=== PATIENT | male | born 1940 | race Two or more races ===

== ENCOUNTER 2021-02-25 22:53 | Inpatient (IN) | payer MEDICARE, OTHER ==
[~2021-02-25] VITALS: Ht 172.7 cm; Wt 118.0 kg
--- NOTE | 2021-02-25 23:02 | NUR ---
PT BIBRA 41 FOR C/O MID STERNAL CP 11/23. ASPIRIN 324MG PO AND A SPRAY OF NITRO GIVEN OIL AND GAS LEASE PUMPER. PLACED IN GOWN, ON TIMBER INSPECTOR, AND PULSE OX. AWAITING ER MD FOR EVAL.
--- NOTE | 2021-02-25 23:26 | NUR ---
JERMAINE MACDONALD [phone]
[2021-02-25 23:33] LABS: BASOPHILS % (AUTO) 0.2 % (0.0-2.0); EOSINOPHILS % (AUTO) 1.8 % (0.0-6.0); HEMATOCRIT 30 % (39-51); HEMOGLOBIN 10.3 g/dL (13.5-17.5); LYMPHOCYTES # (AUTO) 0.7 K/uL (0.8-4.8); LYMPHOCYTES % (AUTO) 11.5 % (20.0-44.0); MEAN CORPUSCULAR HGB CONC 34 g/dl (31.0-36.0); MEAN CORPUSCULAR VOLUME 110 fL (80-96); MONOCYTES # (AUTO) 0.7 K/uL (0.1-1.30); MONOCYTES % (AUTO) 10.9 % (2.0-12.0); NEUTROPHILS # (AUTO) 4.8 K/uL (1.8-8.9); NEUTROPHILS % (AUTO) 75.6 % (43.0-81.0); PLATELET COUNT (AUTO) 174 K/uL (150-450); RED BLOOD CELL COUNT(AUTO) 2.78 MIL/uL (4.5-6.0); WHITE BLOOD COUNT (AUTO) 6.4 K/uL (4.3-11.0)
[2021-02-25 23:48] LABS: CALCIUM, SERUM 8.4 mg/dL (8.5-10.1); CARBON DIOXIDE 29 mmol/L (21-32); CHLORIDE 109 mmol/L (98-107); CREATININE 1.3 mg/dL (0.6-1.3); GLUCOSE 162 mg/dL (74-106); POTASSIUM 4.5 mmol/L (3.5-5.1); SODIUM SERUM 143 mmol/L (136-145); UREA NITROGEN, BLOOD 17 mg/dL (7-18)
[2021-02-25 23:59] LABS: ALANINE AMINOTRANSFERASE 27 U/L (12-78); ALBUMIN 2.5 g/dL (3.4-5.0); ALKALINE PHOSPHATASE 81 U/L (46-116); ASPARTATE AMINOTRANSFERASE 25 U/L (15-37); BILIRUBIN,DIRECT 0.2 mg/dL (0.0-0.2); BILIRUBIN,TOTAL 0.4 mg/dL (0.2-1.0); TOTAL PROTEIN, SERUM 6.3 g/dL (6.4-8.2)
[2021-02-26] MEDS ORDERED: HYDROCODONE/APAP 5/325MG TABLET ONE (00:36)
--- NOTE | 2021-02-26 00:38 | NUR ---
PT REQUESTING PAIN MEDICATION, VERBAL ORDER RECIEVED FOR NORCO 5MG PO.
[2021-02-26] MEDS ORDERED: HYDROCODONE/APAP 5/325MG TABLET PO ONE (01:00)
--- NOTE | 2021-02-26 01:11 | NUR ---
EPIC PAGED FOR PANEL
[2021-02-26] MEDS ORDERED: MORPHINE SULFATE INJ 4 MG/ML DISP.SYRIN IV ONE (01:30)
[2021-02-26] MEDS ORDERED: MAG HYDROX/AL HYDROX/SIMETH 30 ML UDC PO PRN (01:30)
[2021-02-26] MEDS ORDERED: BISA10SU11 RC (01:39)
[2021-02-26] MEDS ORDERED: NA P133E RC (01:39)
[2021-02-26] MEDS ORDERED: ASCO500T21 PO (01:39)
[2021-02-26] MEDS ORDERED: METO50TA16 PO (01:39)
[2021-02-26] MEDS ORDERED: CLON0.5T4 PO (01:39)
[2021-02-26] MEDS ORDERED: DOCU100C36 PO (01:39)
[2021-02-26] MEDS ORDERED: ENOX40DI SQ (01:39)
--- NOTE | 2021-02-26 01:43 | NUR ---
REPORT GIVEN TO MAKAYLA RODAS FOR GARRETT
[2021-02-26 01:55] VITALS: BP 115/67
--- NOTE | 2021-02-26 01:55 | NUR ---
ADMIT NOTE RECEIVED PATIENT FROM ER, TRANSFERRED TO ROOM 105 VIA STRETCHER. PATIENT IS ALERT AND ORIENTED X4. ABLE TO MAKE NEEDS KNOWN. ON O2 4L VIA NASAL CANNULA, O2 SAT 96%. NO S/S OF ANY ACUTE RESPIRATORY DISTRESS. COMPLAINED OF 7/10 BILATERAL LOWER LEGS. DENIES ANY CHEST PAIN AT THIS TIME. KEPT COMFORTABLE. IV ACCESS ON LEFT AC #20, PATENT AND INTACT. SKIN ASSESSMENT DONE, NOTED WITH BILATERAL GROIN REDNESS, BILATERAL LOWER LEG CELLULITIS, AND SACRUM REDNESS. ASSISTED PATIENT WITH URINAL AND VOIDED 80CC YELLOW LUDIVINA URINE. ORIENTED PATIENT TO STAFF, ROOM, AND CALL LIGHT. BED LOCKED AND IN LOWEST POSITION. SAFETY MEASURES MAINTAINED. ALL NEEDS ANTICIPATED.
--- NOTE | 2021-02-26 02:00 | NUR ---
PT TRANSFERED PER ACLS PROTOCOL
[2021-02-26 04:00] VITALS: BP 121/76
[2021-02-26 06:33] LABS: BASOPHILS % (AUTO) 0.5 % (0.0-2.0); EOSINOPHILS % (AUTO) 2.3 % (0.0-6.0); HEMATOCRIT 31 % (39-51); HEMOGLOBIN 10.5 g/dL (13.5-17.5); LYMPHOCYTES # (AUTO) 0.9 K/uL (0.8-4.8); LYMPHOCYTES % (AUTO) 13.6 % (20.0-44.0); MEAN CORPUSCULAR HGB CONC 34 g/dl (31.0-36.0); MEAN CORPUSCULAR VOLUME 109 fL (80-96); MONOCYTES # (AUTO) 0.7 K/uL (0.1-1.30); MONOCYTES % (AUTO) 10.6 % (2.0-12.0); NEUTROPHILS # (AUTO) 4.7 K/uL (1.8-8.9); PLATELET COUNT (AUTO) 157 K/uL (150-450); RED BLOOD CELL COUNT(AUTO) 2.79 MIL/uL (4.5-6.0); WHITE BLOOD COUNT (AUTO) 6.4 K/uL (4.3-11.0)
--- NOTE | 2021-02-26 06:42 | NUR ---
RN NOTE PATIENT IS RESTING IN BED. ABLE TO MAKE NEEDS KNOWN. ON O2 4L VIA NASAL CANNULA, O2 SAT 95%. NO S/S OF ANY ACUTE RESPIRATORY DISTRESS. DENIES ANY PAIN AT THIS TIME. IV ACCESS ON LEFT AC #20, PATENT AND INTACT. TURNED AND REPOSITIONED. BED LOCKED AND IN LOWEST POSITION. SAFETY MEASURES MAINTAINED. WILL ENDORSE TO AM SHIFT.
[2021-02-26 06:59] LABS: ALBUMIN 2.4 g/dL (3.4-5.0); BILIRUBIN,TOTAL 0.4 mg/dL (0.2-1.0); CALCIUM, SERUM 8.1 mg/dL (8.5-10.1); CREATININE 1.1 mg/dL (0.6-1.3); MAGNESIUM 2.1 mg/dL (1.8-2.4); PHOSPHORUS 4.3 mg/dL (2.5-4.9); POTASSIUM 4.4 mmol/L (3.5-5.1); TOTAL PROTEIN, SERUM 6.1 g/dL (6.4-8.2)
[2021-02-26 07:10] LABS: THYROID STIMULATING HORMONE 1.8 uIU/mL (0.358-3.74)
--- NOTE | 2021-02-26 07:13 | NUR ---
WOUND CARE CONSULT: REVIEWED CHART, NURSING DOCUMENTATION AND PHOTOS WHICH INDICATE RASH TO GROIN FOLDS AND PERINEUM, INTACT DEEP TISSUE INJURY TO SACRUM AND LOWER LEG OPEN WOUNDS WITH REDNESS, ALL PRESENT ON ADMISSION. RECOMMENDATIONS MADE FOR SKIN PROTECTION. DISCUSSED WITH NURSING STAFF. DPM CONSULT TO BE CALLED TO DR GREER THIS AM. PT IS ON [facility] ISOFLEX LOW AIRLOSS BED. MD IN AGREEMENT WITH PLAN OF CARE.
[2021-02-26] MEDS ORDERED: Z GUARD REMEDY 2 OZ OINT TP PRN (07:30)
[2021-02-26 08:00] VITALS: BP 133/78
--- NOTE | 2021-02-26 08:00 | NUR ---
NURSE OPENING NOTE RECEIVE REPORT FROM CHARGING CRANE OPERATOR NURSE. PATIENT IN STABLE CONDITION WITH NO SIGN OF DISTRESS. IV FLUSH IS PATENT AND FLUSH. ALL SAFETY MEASURES IN PLACE. BED IN LOWEST POSITION WITH HOB ELEVATED 30 DEGREE. CALL LIGHT WITHIN REACH. WILL CONTINUE TO MONITOR.
[2021-02-26] MEDS: PANTOPRAZOLE 40 MG TABLET.DR PO SCH (08:04)
[2021-02-26] MEDS: ASPIRIN 81 MG TAB.CHEW PO SCH (08:04)
[2021-02-26] MEDS: ENOXAPARIN SODIUM 40 MG/0.4 ML DISP.SYRIN SQ SCH (08:05)
[2021-02-26] MEDS: CLOTRIMAZOLE 1% 15 GM TUBE TP SCH ×2 (09:21→17:04)
[2021-02-26] MEDS: Z GUARD REMEDY 2 OZ OINT TP SCH (09:21)
[2021-02-26] MEDS: METOPROLOL TARTRATE 50 MG TABLET PO SCH ×2 (09:25→17:03)
[2021-02-26] MEDS ORDERED: INSU100V11 SQ (09:26)
[2021-02-26] MEDS ORDERED: HYDR-4303 PO (09:26)
[2021-02-26] MEDS ORDERED: ESCI10TA PO (09:26)
[2021-02-26] MEDS ORDERED: FERR325T23 PO (09:26)
[2021-02-26] MEDS ORDERED: MULT-447 PO (09:26)
[2021-02-26] MEDS ORDERED: TIZA4TAB5 PO (09:26)
[2021-02-26] MEDS ORDERED: ACET-868 PO ×2 (09:26)
[2021-02-26] MEDS ORDERED: ZOLP5TAB8 PO (09:26)
[2021-02-26] MEDS ORDERED: MAGN400O6 PO (09:26)
[2021-02-26] MEDS ORDERED: ISOS60TA72 PO (09:26)
[2021-02-26] MEDS ORDERED: DICL100G34 TP (09:26)
[2021-02-26] MEDS: MORPHINE SULFATE INJ 2 MG/ML DISP.SYRIN IV PRN ×5 (09:26→15:58)
[2021-02-26] MEDS ORDERED: AMMO385C4 TP (09:26)
[2021-02-26] MEDS ORDERED: HYDR-4209 PO (09:26)
[2021-02-26] MEDS ORDERED: NITROGLYCERIN 0.4 MG/TAB BOTTLE ONE (09:47)
[2021-02-26] MEDS ORDERED: CT SWABBABLE VALVE TRANS SET 1 EA INFUS.SET MC ONE (09:47)
[2021-02-26] MEDS ORDERED: IOHEXOL-350 100 ML VIAL IV ONE (09:47)
[2021-02-26] MEDS ORDERED: METOPROLOL TARTRATE INJ 5 MG/5 ML AMPUL ONE ×2 (09:48→10:35)
[2021-02-26] MEDS ORDERED: IV NS 0.9% 250 ML IV ONE (09:48)
[2021-02-26] MEDS: METOPROLOL TARTRATE INJ 5 MG/5 ML AMPUL IVP PRN ×5 (10:17→10:37)
[2021-02-26] MEDS ORDERED: NITROGLYCERIN 0.4 MG/TAB BOTTLE SL ONE (10:30)
--- NOTE | 2021-02-26 10:45 | NUR ---
consented to CTA heart; had a total of Metoprolol 5mg IVPx5 every 5 minutes; NTG 0.4 mg SL given; pt 's BP dropped to Systolic 90's hence Metoprolol given only x5; post procedure VS stable; report given to diana Garces, sent back to unit via bed
[2021-02-26 12:00] VITALS: BP 110/60
[2021-02-26] MEDS ORDERED: VANCOMYCIN 1.5 GM in IV D5W 500 ML IV SCH (13:00)
[2021-02-26] MEDS: VANCOMYCIN 1 GM in IV D5W 250 ML IV SCH (13:26)
[2021-02-26 16:00] VITALS: BP 124/62
--- NOTE | 2021-02-26 19:27 | NUR ---
NURSE CLOSING NOTE. REPORT WAS GIVEN TO ON COMING NURSE. PATIENT IS STABLE CONDITION. BLOOD PRESSURE WITHIN NORMAL LIMITS. SAFETY MEASURE IN PLACE. BED IN LOWEST POSITION. HEAD OF THE BED ELEVATED 30 DEGREE. CALL LIGHT WITHIN REACH.
[2021-02-26 20:00] VITALS: BP 105/51
--- NOTE | 2021-02-26 20:00 | NUR ---
RN NOTE RECEIVED PT IN BED,SLEEPING, AROUSES EASILY. ALERT ORIENTED X 3 ON 4L O2 VIA NC. NO RESP DISTRESS NOTED. DENIES ANY SOB. COMPLAINED OF PAIN ON LOWER LEG AND BACK. IN ON LAC PATENT AND INTACT. WILL CONTINUE TO MONITOR.
--- NOTE | 2021-02-26 20:50 | NUR ---
RN NOTE NOTIFIED ROUGHER HELPER REGARDING PT REQUEST OF LORENA, WHICH HE IS TAKING AT [facility]. WELL PULLER VAZQUEZ AGREED TO ORDER AND TO DC MORPHINE. NEW ORDER NOTED AND CARRIED OUT.
[2021-02-26] MEDS: HYDROCODONE/APAP 5/325MG TABLET PO PRN (21:08)
[2021-02-26] MEDS: ZOLPIDEM TARTRATE 10 MG TABLET PO PRN (23:01)
[2021-02-27] VITALS: BP 132/57
[2021-02-27] MEDS: VANCOMYCIN 1 GM in IV D5W 250 ML IV SCH ×2 (00:24→12:12)
[2021-02-27] MEDS: METOPROLOL TARTRATE 50 MG TABLET PO SCH ×4 (00:24→17:40)
[2021-02-27] MEDS: HYDROCODONE/APAP 5/325MG TABLET PO PRN ×5 (02:23→23:59)
[2021-02-27 04:00] VITALS: BP 132/57
--- NOTE | 2021-02-27 04:10 | NUR ---
RN NOTE PT REQUESTED TIZANIDINE FOR MUSCLE SPASMS. CONFIRMED DOSE FROM PT SNF. NOTIFIED RECOVERY ENGINEER AMY. AGREED TO ORDER.
[2021-02-27] MEDS: TIZANIDINE HCL 4 MG TABLET PO PRN ×2 (04:14→22:55)
--- NOTE | 2021-02-27 04:30 | NUR ---
RN NOTE OBTAINED CONSENT FROM PT FOR WOUND DEBRIDEMENT ON LEFT LOWER LED, AGREED, SIGNED BY PT.
--- NOTE | 2021-02-27 04:38 | NUR ---
RN NOTE PT REFUSED TO HAVE VITAL SIGNS TAKEN. NO DISTRESS NOTED. CONTINUE ON TELE MONITORING SHOWS AFLUTTER/AFIB. WILL CONTINUE TO MONITOR.
--- NOTE | 2021-02-27 06:00 | NUR ---
RN NOTE PATIENT TRYING TO GET OUT FROM BED. HE WANTS TO GET ANOTHER DOSE OF NORCO, EXPLAINED TO PATIENT NOT DUE YET. UNCOOPERATIVE. WILL CLOSELY WATCH PATIENT.
--- NOTE | 2021-02-27 07:00 | NUR ---
RN NOTE PT SLEEPING, AROUSES EASILY. TOLERATES O2 THERAPY. ALL NEEDS WERE ATTENDED. NORCO GIVEN DUE TO PAIN ON LEFT LEG. CONTINUE ON TELE MONITORING SHOWS AFLUTTER/AFIB CONTROLLED. ALL SAFETY MEASURES MAINTAINED. PT CONTINENT, USES URINAL. PT FAMILY REQUESTED FOR PSYCH EVAL. WILL ENDORSE TO NEXT SHIFT NURSE FOR GARRETT.
--- NOTE | 2021-02-27 07:36 | NUR ---
RN NOTE PATIENT IN BED, SLEEPING. ON 4L O2 NC WITH NO SIGNS OF LABORED BREATHING AT THIS TIME. A&OX3. ON TELE, AFIB AT THIS TIME. L AC 20G IN PLACE. BED LOCKED AND IN LOWEST POSITION, 3 SIDE RAILS UP, CALL LIGHT WITHIN REACH. ALL SAFETY MEASURES IMPLEMENTED. WILL CONTINUE TO MONITOR.
--- NOTE | 2021-02-27 07:57 | NUR ---
WOUND CARE CONSULT: RECEIVED 2ND CONSULT FOR LEFT LOWER EXTREMITY. DEFER TO DPM CURRENTLY ON CASE FOR LOWER EXTREMITY WOUND TREATMENT PLAN. DISCUSSED SKIN PROTECTION WITH NURSING STAFF. PT IS ON ATHENS ISOFLEX LOW AIRLOSS BED.
[2021-02-27 08:00] VITALS: BP 117/58
[2021-02-27] MEDS: ASPIRIN 81 MG TAB.CHEW PO SCH (09:31)
[2021-02-27] MEDS: PANTOPRAZOLE 40 MG TABLET.DR PO SCH (09:31)
[2021-02-27] MEDS: Z GUARD REMEDY 2 OZ OINT TP SCH (09:32)
[2021-02-27] MEDS: ENOXAPARIN SODIUM 40 MG/0.4 ML DISP.SYRIN SQ SCH (09:32)
[2021-02-27] MEDS: CLOTRIMAZOLE 1% 15 GM TUBE TP SCH ×2 (09:32→16:11)
[2021-02-27 12:00] VITALS: BP 115/60
--- NOTE | 2021-02-27 12:00 | NUR ---
television picture tube rebuilder note able to eat self , up on edge of bed with with assistance
--- NOTE | 2021-02-27 12:43 | NUR ---
cable television access coordinator note consent tong debridement obtained
--- NOTE | 2021-02-27 14:29 | NUR ---
GORE STITCHER NOTE PATITO MIRZA RN DNP MADE ROUNDS , UPDATED PATIENT CONDITION
[2021-02-27 15:25] LABS: CALCIUM, SERUM 8.2 mg/dL (8.5-10.1); CARBON DIOXIDE 22 mmol/L (21-32); CHLORIDE 106 mmol/L (98-107); CREATININE 1.4 mg/dL (0.6-1.3); GLUCOSE 141 mg/dL (74-106); POTASSIUM 4.6 mmol/L (3.5-5.1); SODIUM SERUM 139 mmol/L (136-145); UREA NITROGEN, BLOOD 22 mg/dL (7-18)
[2021-02-27 16:00] VITALS: BP 106/50
[2021-02-27] MEDS: APIXABAN 5 MG TABLET PO SCH (16:10)
--- NOTE | 2021-02-27 18:42 | NUR ---
RN CLOSING NOTE PATIENT IN BED, AWAKE, A&OX3. PATIENT ON 4L O2 NC WITH NO SIGNS OF LABORED BREATHING AT THIS TIME. ON TELE MONITOR, AFIB AT THIS TIME. L AC 20G IN PLACE AND PATENT. BED LOCKED AND IN LOWEST POSITION, 3 SIDE RAILS UP, CALL LIGHT WITHIN REACH. ALL SAFETY MEASURES IMPLEMENTED. WILL ENDORSE TO SEA SHELL GATHERER NURSE.
[2021-02-27 20:00] VITALS: BP 106/51
--- NOTE | 2021-02-27 20:00 | NUR ---
MS RN NOTE RECEIVED PATIENT IN BED, AWAKE, ALERT AND RESPONSIVE. AOX3, ABLE TO MAKE NEEDS KNOWN , ON 4LITERS OF O2 VIA NC SATING 96% BREATHING EVEN AND UNLABORED. SKIN WARM AND DRY TO TOUCH. WITH LLE CELLULITIS C/O PAIN P 7/10 NORCO 5/325 GIVEN ORDERED .ABDOMEN SOFT AND NON-TENDER. WITH LAC G#20 INTACT AND PATENT ALL DUE MEDS GIVEN ORDERED . ALL NEEDS ATTENDED TOO. KEPT PTS CLEAN AND DRY AND COMFORTABLE . CALL LIGHT WITHIN REACH. WILL CONTINUE TO MONITOR PTS.
[2021-02-27] MEDS: SIMVASTATIN 20 MG TABLET PO SCH (22:54)
[2021-02-27] MEDS: ZOLPIDEM TARTRATE 10 MG TABLET PO PRN (22:55)
[2021-02-28] VITALS: BP 131/63
[2021-02-28] MEDS: METOPROLOL TARTRATE 50 MG TABLET PO SCH ×4 (00:06→17:20)
[2021-02-28] MEDS: VANCOMYCIN 1 GM in IV D5W 250 ML IV SCH (01:59)
[2021-02-28] MEDS: HYDROCODONE/APAP 5/325MG TABLET PO PRN ×5 (03:57→23:37)
[2021-02-28 04:00] VITALS: BP 129/71
--- NOTE | 2021-02-28 06:35 | NUR ---
MS RN NOTE REMAINS IN BED AWAKE, ALERT AND RESPONSIVE. AOX3, NO SOB NO DISTRESS BREATHING EVEN AND UNLABORED.ON 4 LITERS OF O2 VIA NC WITH SATURATION OF 96 %. DENIES PAIN AT THIS TIME. ALL NEEDS ATTENDED TOO. KEPT CLEAN AND DRY. CALL LIGHT WITHIN REACH. WILL ENDORSE TO RN DAY SHIFT FOR CONTINUITY OF CARE.
[2021-02-28 07:40] LABS: CALCIUM, SERUM 7.6 mg/dL (8.5-10.1); CREATININE 1.3 mg/dL (0.6-1.3); POTASSIUM 4.3 mmol/L (3.5-5.1)
[2021-02-28 08:00] VITALS: BP 113/60
--- NOTE | 2021-02-28 08:45 | NUR ---
RN NOTE PT COMPLAINING OF NASAL IRRITATION AND SMALL ABOUT OF BLOOD. PER MD, GAVE ELIQUIS PRESCRIBED.
[2021-02-28] MEDS: ASPIRIN 81 MG TAB.CHEW PO SCH (08:50)
[2021-02-28] MEDS: PANTOPRAZOLE 40 MG TABLET.DR PO SCH (08:50)
[2021-02-28] MEDS: APIXABAN 5 MG TABLET PO SCH ×2 (08:54→17:20)
[2021-02-28] MEDS: Z GUARD REMEDY 2 OZ OINT TP SCH (08:58)
[2021-02-28] MEDS: CLOTRIMAZOLE 1% 15 GM TUBE TP SCH ×2 (08:58→17:21)
--- NOTE | 2021-02-28 09:00 | NUR ---
RN NOTES PT IV ACCESS REMOVED, CATHETER WAS DISPLACED AND LEAKING AROUND THE SITE. PT COMPLAINT OF PAIN 8/10 ON LLE AND LOWER BACK. MEDICATED WITH NORCO @8451. PT ABLE TO USE URINAL WITH ASSISTANCE. ALL NEEDS ATTENDED AT THIS TIME.
[2021-02-28] MEDS: TIZANIDINE HCL 4 MG TABLET PO PRN (09:03)
[2021-02-28] MEDS: VANCOMYCIN 0.75 GM in IV D5W 250 ML IV SCH (13:04)
[2021-02-28 14:08] VITALS: BP 116/48
[2021-02-28 16:00] VITALS: BP 118/75
--- NOTE | 2021-02-28 18:45 | NUR ---
RN NOTES NO NOTABLE CHANGES DURING SHIFT. NO S/SX OF ACUTE RESPIRATORY DISTRESS. WOUND DEBRIDEMENT PERFORMED AND NEW DRESSING APPLIED. DAUGHTER AT THE BEDSIDE AND UPDATED ON PLAN OF CARE. ALL NEEDS ATTENDED AT THIS TIME WITH BED IN LOWEST LOCKED POSITION, CALL LIGHT WITHIN REACH AND BED ALARM ON.
--- NOTE | 2021-02-28 19:15 | NUR ---
MS RN NOTES RECEIVED PATIENT IN BED, AWAKE, ALERT AND RESPONSIVE. AOX3, ABLE TO MAKE NEEDS KNOWN , ON 4LITERS OF O2 VIA NC SATING 96% BREATHING EVEN AND UNLABORED. SKIN WARM AND DRY TO TOUCH. NOTED WITH WITH LLE CELLULITIS.WITH LAC G#20 INTACT AND PATENT. ALL NEEDS ATTENDED TOO. KEPT PTS CLEAN AND DRY AND COMFORTABLE AT THIS TIME . CALL LIGHT WITHIN REACH. WILL CONTINUE TO MONITOR PT.
--- NOTE | 2021-02-28 19:33 | NUR ---
MS RN NOTES PT HAVING 8/10 PAIN ON ANUMERIC PAIN SCALE OF THE LEGS PRN NORCO GIVEN AND TOLERATED WELL.WILL CONTINUE TO MONITOR.
[2021-02-28] MEDS: SIMVASTATIN 20 MG TABLET PO SCH (21:22)
[2021-02-28 22:12] VITALS: BP 125/55
[2021-02-28] MEDS: ZOLPIDEM TARTRATE 10 MG TABLET PO PRN (22:22)
[2021-02-28] MEDS ORDERED: MELA3TAB41 PO (23:33)
--- NOTE | 2021-02-28 23:41 | NUR ---
MS RN NOTES PT REPORTED 8/10 ON A NUMERIC PAIN SCALE PRN NORCO GIVEN AND TOLERATED WELL WILL CONTINUE TO MONITOR.
[2021-03-01] VITALS (8 sets, daily range): BP systolic 82–153; BP diastolic 57–85
[2021-03-01] MEDS: METOPROLOL TARTRATE 50 MG TABLET PO SCH ×5 (00:33→23:52)
[2021-03-01] MEDS: VANCOMYCIN 0.75 GM in IV D5W 250 ML IV SCH ×2 (01:16→12:59)
[2021-03-01] MEDS: HYDROCODONE/APAP 5/325MG TABLET PO PRN ×3 (03:39→22:43)
--- NOTE | 2021-03-01 03:55 | NUR ---
MS RN NOTES PT REPORTED PAIN 8/10 ON A NUMERIC PAIN SCALE PRN NORCO PROVIDED AND TOLERATED WELL. WILL CONTINUE TO MONITOR.
--- NOTE | 2021-03-01 06:43 | NUR ---
RN NOTES PATIENT IN BED, AWAKE, ALERT AND RESPONSIVE. AOX3, ABLE TO MAKE NEEDS KNOWN , ON 4LITERS OF O2 VIA NC SATING 96% BREATHING EVEN AND UNLABORED. SKIN WARM AND DRY TO TOUCH. NOTED WITH WITH LLE CELLULITIS.WITH LAC G#20 INTACT AND PATENT. ALL NEEDS ATTENDED TOO. KEPT PTS CLEAN AND DRY AND COMFORTABLE AT THIS TIME . CALL LIGHT WITHIN REACH. WILL ENDORSE CARE TO DAY SHIFT NURSE.
[2021-03-01 07:03] LABS: CALCIUM, SERUM 7.8 mg/dL (8.5-10.1); CARBON DIOXIDE 28 mmol/L (21-32); CHLORIDE 107 mmol/L (98-107); CREATININE 1.7 mg/dL (0.6-1.3); GLUCOSE 106 mg/dL (74-106); POTASSIUM 4.3 mmol/L (3.5-5.1); SODIUM SERUM 140 mmol/L (136-145); UREA NITROGEN, BLOOD 19 mg/dL (7-18)
--- NOTE | 2021-03-01 07:20 | NUR ---
RN OPENING NOTES RECEIVED PATIENT IN BED, AWAKE, ALERT AND RESPONSIVE. PATIENT IS AOX3, ABLE TO MAKE NEEDS KNOWN , PATIENT IS BREATHING EVENLY AND NONLABORED ON 4LITERS OF O2 VIA NC SATING 96% NO SIGNS OF DISTRESS NOTED. NOTED WITH WITH LLE CELLULITIS.WITH LAC G#20 INTACT AND PATENT.NO COMPLAINTS OF PAIN OR DISCOMFORT AT THIS TIME. SAFETY MEASURES IN PLACE BED LOW LOCKED AND CALL LIGHT WITHIN REACH. WILL CONTINUE TO MONITOR
[2021-03-01] MEDS: ASPIRIN 81 MG TAB.CHEW PO SCH (08:40)
[2021-03-01] MEDS: APIXABAN 5 MG TABLET PO SCH ×2 (08:40→16:21)
[2021-03-01] MEDS: PANTOPRAZOLE 40 MG TABLET.DR PO SCH (08:40)
[2021-03-01] MEDS: Z GUARD REMEDY 2 OZ OINT TP SCH (08:41)
[2021-03-01] MEDS: CLOTRIMAZOLE 1% 15 GM TUBE TP SCH ×2 (08:41→16:22)
[2021-03-01] MEDS: IV NS 0.9% 1,000 ML IV PRN ×2 (12:52→20:54)
--- NOTE | 2021-03-01 18:24 | NUR ---
RN CLOSING NOTES PATIENT IN BED, AWAKE, ALERT AND RESPONSIVE. PATIENT IS AOX3, ABLE TO MAKE NEEDS KNOWN , PATIENT IS BREATHING EVENLY AND NONLABORED ON 4LITERS OF O2 VIA NC SATING 96% NO SIGNS OF DISTRESS NOTED. NOTED WITH WITH LLE CELLULITIS, WOUND CARE PERFORMED DURING SHIFT DRESSING C/D/I. PATIENT NOTED WITH WITH LAC G#20 INTACT AND PATENT RUNNING NS @ 125 ML/HR, NO COMPLAINTS OF PAIN OR DISCOMFORT AT THIS TIME. SAFETY MEASURES IN PLACE BED LOW LOCKED AND CALL LIGHT WITHIN REACH. WILL ENDORSE TO ONCOMING SHIFT
--- NOTE | 2021-03-01 21:47 | NUR ---
MS RN NOTES: PATIENT ARRIVED IN THE FLOOR BY BED, AWAKE, A/O X4. NO S/S OF DISTRESS NOTED. CALL LIGHT WITHIN REACH. BED IN LOWEST AND LOCKED POSITION. ON O2 AT 4L/MIN NASAL CANNULA. URINAL AT THE BEDSIDE.
[2021-03-01] MEDS: SIMVASTATIN 20 MG TABLET PO SCH (22:43)
[2021-03-01] MEDS: ZOLPIDEM TARTRATE 10 MG TABLET PO PRN (23:52)
[2021-03-02] MEDS: TIZANIDINE HCL 4 MG TABLET PO PRN ×2 (00:35→22:38)
--- NOTE | 2021-03-02 02:32 | NUR ---
PATIENT REQUESTED HE WANTS TO SIT AT THE EDGE OF THE BED, CHINO LINARES ASSISTED HIM TO SIT, AFTER FEW MINUTES, PATIENT'S LEFT LEG WAS BLEEDING. HELPED PATIENT BACK TO BED TO LIE DOWN, REINFORCED WITH ABD PADS AND WRAPPED WITH KERLIX DRESSING, ELEVATED THE LEFT LEG WITH PILLOW, BLEEDING STOPPED, INFORMED MARIA DEL ROSARIO SHUKLA, CHARGE NURSE RUMA CARDENAS.
[2021-03-02] MEDS: METOPROLOL TARTRATE 50 MG TABLET PO SCH ×2 (05:21→17:04)
[2021-03-02] MEDS: VANCOMYCIN 0.75 GM in IV D5W 250 ML IV SCH (05:22)
[2021-03-02] MEDS: IV NS 0.9% 1,000 ML IV PRN (05:22)
[2021-03-02] MEDS: HYDROCODONE/APAP 5/325MG TABLET PO PRN ×3 (05:26→20:59)
[2021-03-02 05:31] VITALS: BP 122/60
[2021-03-02 06:44] LABS: BASOPHILS % (AUTO) 0.4 % (0.0-2.0); EOSINOPHILS % (AUTO) 2.5 % (0.0-6.0); HEMATOCRIT 29 % (39-51); HEMOGLOBIN 9.6 g/dL (13.5-17.5); LYMPHOCYTES # (AUTO) 0.8 K/uL (0.8-4.8); LYMPHOCYTES % (AUTO) 12.4 % (20.0-44.0); MEAN CORPUSCULAR HGB CONC 34 g/dl (31.0-36.0); MEAN CORPUSCULAR VOLUME 109 fL (80-96); MONOCYTES # (AUTO) 0.6 K/uL (0.1-1.30); MONOCYTES % (AUTO) 9.8 % (2.0-12.0); NEUTROPHILS # (AUTO) 4.5 K/uL (1.8-8.9); NEUTROPHILS % (AUTO) 74.9 % (43.0-81.0); PLATELET COUNT (AUTO) 188 K/uL (150-450); RED BLOOD CELL COUNT(AUTO) 2.63 MIL/uL (4.5-6.0); WHITE BLOOD COUNT (AUTO) 6.1 K/uL (4.3-11.0)
--- NOTE | 2021-03-02 07:18 | NUR ---
RN OPENING NOTES RECEIVED PATIENT IN BED, AWAKE, ALERT AND RESPONSIVE. PATIENT IS AOX3, ABLE TO MAKE NEEDS KNOWN , PATIENT IS BREATHING EVENLY AND NONLABORED ON 4LITERS OF O2 VIA NC SATING 96% NO SIGNS OF DISTRESS NOTED. NOTED WITH WITH LLE CELLULITIS, DRESSING C/D/I. PATIENT NOTED WITH LAC G#20 INTACT AND PATENT. NO COMPLAINTS OF PAIN OR DISCOMFORT AT THIS TIME. SAFETY MEASURES IN PLACE BED LOW LOCKED AND CALL LIGHT WITHIN REACH. WILL CONTINUE TO MONITOR
[2021-03-02 07:30] LABS: ALANINE AMINOTRANSFERASE 21 U/L (12-78); ALBUMIN 2.1 g/dL (3.4-5.0); ALKALINE PHOSPHATASE 86 U/L (46-116); ASPARTATE AMINOTRANSFERASE 23 U/L (15-37); BILIRUBIN,TOTAL 0.3 mg/dL (0.2-1.0); CALCIUM, SERUM 7.7 mg/dL (8.5-10.1); CARBON DIOXIDE 26 mmol/L (21-32); CHLORIDE 109 mmol/L (98-107); CREATININE 1.4 mg/dL (0.6-1.3); GLUCOSE 105 mg/dL (74-106); PHOSPHORUS 3.1 mg/dL (2.5-4.9); POTASSIUM 4.6 mmol/L (3.5-5.1); SODIUM SERUM 142 mmol/L (136-145); TOTAL PROTEIN, SERUM 5.8 g/dL (6.4-8.2); UREA NITROGEN, BLOOD 18 mg/dL (7-18)
[2021-03-02 08:00] VITALS: BP 106/59
[2021-03-02 08:17] LABS: BILIRUBIN,URINE NEGATIVE (NEGATIVE); COLOR,URINE YELLOW (YELLOW); LEUKOCYTE ESTERASE ,URINE SMALL (NEGATIVE); NITRITE, URINE POSITIVE (NEGATIVE); PH,URINE 5.5 (5.0-8.0); PROTEIN,URINE NEGATIVE (NEGATIVE); UGLUCOSE NEGATIVE (NEGATIVE); UROBILINOGEN,URINE 0.2 EU/dL (0.2)
[2021-03-02] MEDS: ASPIRIN 81 MG TAB.CHEW PO SCH (08:24)
[2021-03-02] MEDS: PANTOPRAZOLE 40 MG TABLET.DR PO SCH (08:24)
[2021-03-02] MEDS: Z GUARD REMEDY 2 OZ OINT TP SCH (08:25)
[2021-03-02] MEDS: CLOTRIMAZOLE 1% 15 GM TUBE TP SCH ×2 (08:25→16:38)
[2021-03-02] MEDS: APIXABAN 5 MG TABLET PO SCH ×2 (08:28→16:31)
[2021-03-02 09:11] LABS: CREATININE, URINE 143.7 MG/DL (30.0-125.0)
[2021-03-02 12:19] LABS: BACTERIA,URINE Many /HPF (None Seen); SQUAMOUS EPITHELIAL CELL,UR Moderate /HPF (None Seen)
--- NOTE | 2021-03-02 14:13 | NUR ---
RN NOTE UPON ROUNDS DRESSING NOTED WITH NEEDING TO BE CHANGED, CHANGE IN WOUND NOTED, MD MADE AWARE WITH ORDER FOR NS, XEROFORM AND WRAP WITH KERLIX, CHANGE PRN, AND MD WOULD SEE PATIENT TOMORROW, NO OTHER ORDERS AT THIS TIME, WILL CONTINUE TO MONITOR
--- NOTE | 2021-03-02 14:15 | NUR ---
RN NOTE MD ASKED IF OKAY TO GIVE ELIQUIS DUE TO BLEEDING, STATED OKAY TO GIVE,
[2021-03-02 16:00] VITALS: BP 149/87
[2021-03-02] MEDS ORDERED: METOPROLOL TARTRATE 50 MG TABLET ONE (16:01)
[2021-03-02 16:42] LABS: EOSINOPHIL,URINE Few
--- NOTE | 2021-03-02 18:12 | NUR ---
MS RN CLOSING NOTES PATIENT IN BED, AWAKE, ALERT AND RESPONSIVE. PATIENT IS AOX3, ABLE TO MAKE NEEDS KNOWN , PATIENT IS BREATHING EVENLY AND NONLABORED ON 4LITERS OF O2 VIA NC SATING 96% NO SIGNS OF DISTRESS NOTED. NOTED WITH WITH LLE CELLULITIS, WOUND CARE PERFORMED DURING SHIFT DRESSING C/D/I. MD AWARE OF CHANGES TO WOUND. PATIENT NOTED WITH WITH LAC G#20 INTACT AND PATENT. NO COMPLAINTS OF PAIN OR DISCOMFORT AT THIS TIME. SAFETY MEASURES IN PLACE BED LOW LOCKED AND CALL LIGHT WITHIN REACH. WILL ENDORSE TO ONCOMING SHIFT
--- NOTE | 2021-03-02 19:33 | NUR ---
MS RN OPENING NOTES: RECEIVED PATIENT IN BED AWAKE, BED IN LOW POSITION, CALL LIGHTS WITHIN REACH, NO COMPLAIN OF PAIN AND DISCOMFORT AT THIS TIME, PATIENT IS A/C 4 ABLE TO EXPRESS NEEDS, STATUS POST DEBRIDMENT LLE MONITORING FOR BLEEDING, PATIENT HAS IV LINE #20 WITH NSS@125ML/HR X 2 BAGS, 2ND BAG ONGOING, NO COMPLAIN OF PAIN AND DISCOMFORT AT THIS TIME, PATIENT KEPT CLEAN AND DRY, ALL NEEDS MET, WILL CONTINUE TO MONITOR.
[2021-03-02 20:00] VITALS: BP 121/63
--- NOTE | 2021-03-02 21:07 | NUR ---
RN NOTES: PATIENT COMPLAIN OF PAIN ON BLE MORE ON LEFT LEG PS-9,NORCO 5-325 X2 TAB GIVEN FOR SEVERE PAIN
[2021-03-02] MEDS ORDERED: HYDROMORPHONE 1 MG/1 ML DISP.SYRIN IV ONE (22:00)
[2021-03-02] MEDS: SIMVASTATIN 20 MG TABLET PO SCH (22:35)
[2021-03-02] MEDS: ZOLPIDEM TARTRATE 10 MG TABLET PO PRN (22:35)
[2021-03-03] MEDS: VANCOMYCIN 0.75 GM in IV D5W 250 ML IV SCH ×2 (00:05→17:39)
[2021-03-03] MEDS: HYDROCODONE/APAP 5/325MG TABLET PO PRN ×6 (01:51→21:37)
--- NOTE | 2021-03-03 03:20 | NUR ---
RN NOTES: PATIENT REQUESTED PAIN MEDICINE EARLIER BUT WHEN ABOUT TO GIVE THE MEDICINE PATIENT WAS SLEEPING MEDICATION WAS TAKEN EARLIER AND WAS JUST GIVEN NOW UPON REQUEST WHEN PATIENT WAS AWAKE
[2021-03-03 05:52] LABS: BASOPHILS % (AUTO) 0.4 % (0.0-2.0); EOSINOPHILS % (AUTO) 3.1 % (0.0-6.0); HEMATOCRIT 29 % (39-51); HEMOGLOBIN 9.6 g/dL (13.5-17.5); LYMPHOCYTES # (AUTO) 0.7 K/uL (0.8-4.8); LYMPHOCYTES % (AUTO) 13.9 % (20.0-44.0); MEAN CORPUSCULAR HGB CONC 33 g/dl (31.0-36.0); MEAN CORPUSCULAR VOLUME 109 fL (80-96); MONOCYTES # (AUTO) 0.6 K/uL (0.1-1.30); MONOCYTES % (AUTO) 11.4 % (2.0-12.0); NEUTROPHILS # (AUTO) 3.8 K/uL (1.8-8.9); NEUTROPHILS % (AUTO) 71.2 % (43.0-81.0); PLATELET COUNT (AUTO) 190 K/uL (150-450); RED BLOOD CELL COUNT(AUTO) 2.64 MIL/uL (4.5-6.0); WHITE BLOOD COUNT (AUTO) 5.3 K/uL (4.3-11.0)
[2021-03-03 06:35] LABS: CALCIUM, SERUM 7.6 mg/dL (8.5-10.1); CREATININE 1.3 mg/dL (0.6-1.3); MAGNESIUM 1.9 mg/dL (1.8-2.4); PHOSPHORUS 3.4 mg/dL (2.5-4.9); POTASSIUM 4.3 mmol/L (3.5-5.1)
[2021-03-03] MEDS: METOPROLOL TARTRATE 50 MG TABLET PO SCH ×2 (07:06→17:39)
--- NOTE | 2021-03-03 07:33 | NUR ---
RN MS NOTES RECEIVED PATIENT AWAKE, A/OX4. IN NO APPARENT DISTRESS NOTED. BREATHING EVEN AND UNLABORED. MILD PAIN NOTED AT BILATERAL LLE ,BUT TOLERABLE AT THIS TIME, PT. DID NOT ASK FOR ANY PAIN MEDS. AT THIS TIME. PATIENT WITH LFA HEPLOCK, INTACT AND PATENT WITH CLEAN DRY DRESSING IN PLACE, INFUSING NS AT 125 ML/HR, INFUSING WELL. FREQUENT VISUAL CHECKS RENDERED TO ENSURE SAFETY AND COMFORT. ALL NEEDS ATTENDED. CALL LIGHT WITHIN EASY REACH.
--- NOTE | 2021-03-03 07:50 | NUR ---
RN CLOSING NOTES: RECEIVED PATIENT SLEEP IN BED COMFORTABLY, AROUSABLE TO VERBAL STIMULI, NO COMPLAIN OF PAIN AND DISCOMFORT AT THIS TIME, MONITORING DUE TO HEMATOMA ON LEFT LEG, DUE MED PAIN MEDICATION GIVEN, PATIENT KEPT CLEAN AND DRY ALL NEEDS MET ENDORSE TO INCOMING SHIFT.
[2021-03-03 08:00] VITALS: BP 128/68
[2021-03-03] MEDS: ASPIRIN 81 MG TAB.CHEW PO SCH (08:25)
[2021-03-03] MEDS: APIXABAN 5 MG TABLET PO SCH ×2 (08:26→17:22)
[2021-03-03] MEDS: PANTOPRAZOLE 40 MG TABLET.DR PO SCH (08:27)
[2021-03-03] MEDS: CLOTRIMAZOLE 1% 15 GM TUBE TP SCH ×2 (08:27→17:23)
[2021-03-03] MEDS: Z GUARD REMEDY 2 OZ OINT TP SCH (08:28)
--- NOTE | 2021-03-03 08:35 | NUR ---
RN NOTES PT C/O OF BLE PAIN , 8/10 SCALE. PRN NORCO 5/325MG TAB GIVEN AT 0834. WILL CONTINUE TO MONITOR AND REASSESS PT.
--- NOTE | 2021-03-03 15:20 | NUR ---
RN NOTES PT C/O OF BLE PAIN , 8/10 SCALE. PRN NORCO 5/325MG TAB GIVEN AT 1515. WILL CONTINUE TO MONITOR AND REASSESS PT.
[2021-03-03 16:00] VITALS: BP 113/63
[2021-03-03] MEDS: TIZANIDINE HCL 4 MG TABLET PO PRN (18:17)
--- NOTE | 2021-03-03 18:40 | NUR ---
RN MS CLOSING NOTES PATIENT AWAKE IN BED AND WATCHING TV AT THIS TIME, A/OX4. ON OXYGEN AT 4LPM via N.C, TOLERATING WELL.IN NO APPARENT DISTRESS NOTED. BREATHING EVEN AND UNLABORED AT THIS TIME. PATIENT WITH LFA HEPLOCK G#22, INTACT AND PATENT WITH CLEAN DRY DRESSING IN PLACE. PATIENT REFUSED TO REPOSITIONED FROM SIDE TO SIDE. FREQUENT VISUAL CHECKS RENDERED TO ENSURE SAFETY AND COMFORT. BED IN LOWEST POSITION WITH SIDE RAILS UP X2. ALL NEEDS AND CARE ATTENDED WELL.CALL LIGHT WITHIN EASY REACH. WILL ENDORSED GARRETT TO NIGHT.
--- NOTE | 2021-03-03 19:15 | NUR ---
MS RN OPENING NOTES: RECEIVED PATIENT IN BED, AWAKE, A/O X4. NO S/S OF DISTRESS NOTED. CALL LIGHT WITHIN REACH. BED ALARM ON. BED IN LOWEST AND LOCKED POSITION. VOIDED ON THE URINAL.
[2021-03-03 20:00] VITALS: BP 129/81
[2021-03-03] MEDS: MEROPENEM 1 G in IV NS 0.9% 100 ML IV SCH (21:37)
[2021-03-03] MEDS: SIMVASTATIN 20 MG TABLET PO SCH (21:37)
[2021-03-03] MEDS: ZOLPIDEM TARTRATE 10 MG TABLET PO PRN (22:43)
--- NOTE | 2021-03-03 23:21 | NUR ---
PATIENT STATES THAT HE STILL HAVING A LOT OF PAIN AT THIS TIME, INFORMED PROPULSION GENERATOR REPAIRER VAZQUEZ.
--- NOTE | 2021-03-03 23:47 | NUR ---
AT THIS TIME, PATIENT IS YELLING AND SCREAMING, AND VERY UPSET. AND PATIENT TRIED TO REMOVE THE LEFT LOWER LEG DRESSING, ADVISED THE PATIENT NOT TO TOUCH THE DRESSING. CHARGE NURSE CHAN SPOKE TO THE PT THAT MARIA DEL ROSARIO SHUKLA IS BEING INFORMED OF PATIENT'S PAIN,AWAITING FOR THE ORDER. PATIENT STATES THAT HE WANTS TO LEAVE AND TO GO BACK TO THE FACILITY WHERE HE CAME FROM, SMILEY CHAN AND MARIA DEL ROSARIO SHUKLA AWARE.
[2021-03-04] MEDS ORDERED: MORPHINE SULFATE INJ 2 MG/ML DISP.SYRIN IV ONE
[2021-03-04] MEDS ORDERED: MORPHINE SULFATE INJ 2 MG/ML DISP.SYRIN ONE (00:09)
[2021-03-04] MEDS: HYDROCODONE/APAP 5/325MG TABLET PO PRN ×3 (05:48→20:36)
[2021-03-04] MEDS: METOPROLOL TARTRATE 50 MG TABLET PO SCH ×2 (05:49→18:21)
[2021-03-04 07:03] LABS: CALCIUM, SERUM 7.9 mg/dL (8.5-10.1); CREATININE 1.2 mg/dL (0.6-1.3); POTASSIUM 4.2 mmol/L (3.5-5.1)
--- NOTE | 2021-03-04 07:16 | NUR ---
MS RN OPENING NOTES RECEIVED PATIENT ON BED ASLEEP BUT EASILY AROUSABLE. PATIENT IS A/O X4, PATIENT ON ROOM AIR WITH NO SIGNS OF ACUTE DISTRESS NOTED SATURATING AT 96%. PATIENT DOES NOT COMPLAIN OF PAIN OR DISCOMFORT AT THIS TIME AND IS SLEEPING INTERMITTENTLY. PATIENT WITH IV ACCESS ON LEFT FOREARM G22, PATENT AND INTACT. WITH DRESSING ON THE LEFT LOWER EXTREMITY, COVERED WITH DRY DRESSING, DRY AND INTACT. SAFETY MEASURES IN PLACE WITH BED ON LOWEST AND LOCKED POSITION, SIDE RAILS UP X2, CALL LIGHT AND TABLE WITHIN REACH. WILL CONTINUE TO MONITOR PATIENT.
[2021-03-04 08:00] VITALS: BP 126/74
[2021-03-04] MEDS: ASPIRIN 81 MG TAB.CHEW PO SCH (08:49)
[2021-03-04] MEDS: PANTOPRAZOLE 40 MG TABLET.DR PO SCH (08:49)
[2021-03-04] MEDS: APIXABAN 5 MG TABLET PO SCH ×2 (08:53→17:23)
[2021-03-04] MEDS: Z GUARD REMEDY 2 OZ OINT TP SCH (09:00)
[2021-03-04] MEDS: MEROPENEM 1 G in IV NS 0.9% 100 ML IV SCH ×2 (09:34→20:23)
[2021-03-04] MEDS: CLOTRIMAZOLE 1% 15 GM TUBE TP SCH ×2 (09:38→17:16)
--- NOTE | 2021-03-04 13:00 | NUR ---
MS RN NOTE SEEN BY ENTRY LEVEL FINANCIAL ANALYST AND ORDERED TO WRAP RIGHT LOWER EXTREMITY WITH FADI BANDAGE TO LYSE/ CONTROL HEMATOMA AND ADD PRESSURE.WILL CONTINUE TO MONITOR PATIENT.
[2021-03-04 16:16] VITALS: BP 124/62
--- NOTE | 2021-03-04 19:00 | NUR ---
MS RN CLOSING NOTES PATIENT ON BED ASLEEP BUT EASILY AROUSABLE. PATIENT IS A/O X4, PATIENT ON ROOM AIR WITH NO SIGNS OF ACUTE DISTRESS NOTED SATURATING AT 96%. PATIENT DOES NOT COMPLAIN OF PAIN OR DISCOMFORT AT THIS TIME AND IS SLEEPING INTERMITTENTLY. PATIENT WITH IV ACCESS ON LEFT FOREARM G22, PATENT AND INTACT. WITH DRESSING ON THE LEFT LOWER EXTREMITY, COVERED WITH DRY DRESSING, DRY AND INTACT. SAFETY MEASURES IN PLACE WITH BED ON LOWEST AND LOCKED POSITION, SIDE RAILS UP X2, CALL LIGHT AND TABLE WITHIN REACH. WILL ENDORSE PATIENT FOR CONTINUITY OF CARE.
--- NOTE | 2021-03-04 19:30 | NUR ---
MS RN OPENING NOTES PATIENT LAST SEEN AWAKE IN BED RESTING. PATIENT IS A/O X4. PATIENT'S ON 3LPM OF OXYGEN VIA NASAL CANNULA WITH NO RESPIRATORY DISTRESS NOTED. IV ACCESS ON LEFT FOREARM G#22, WHICH IS INTACT, PATENT, AND FLUSHING WELL. PATIENT'S IN NO ACUTE DISTRESS AT THIS TIME: SAFETY MEASURES IN PLACE: BED LOCKED, BED ALARM ON, SIDE RAILS UPX3, AND CALL LIGHT WITHIN REACH. WILL CONTINUE TO MONITOR THE PATIENT.
[2021-03-04 19:59] VITALS: BP 136/60
--- NOTE | 2021-03-04 20:36 | NUR ---
MS RN NOTES PATIENT C/O 9/10 PAIN. PATIENT WAS GIVEN 2 TABLETS OF NORCO 5/325MG PO. WILL REASSESS PAIN AT 2135.
[2021-03-04] MEDS: ZOLPIDEM TARTRATE 10 MG TABLET PO PRN (21:00)
[2021-03-04] MEDS: SIMVASTATIN 20 MG TABLET PO SCH (21:00)
[2021-03-04] MEDS: TIZANIDINE HCL 4 MG TABLET PO PRN (21:28)
[2021-03-05] MEDS: IV NS 0.9% 1,000 ML IV PRN (00:14)
[2021-03-05] MEDS: HYDROCODONE/APAP 5/325MG TABLET PO PRN ×2 (03:00→09:00)
--- NOTE | 2021-03-05 03:00 | NUR ---
MS RN NOTES PATIENT C/O 9/10 PAIN AT THIS TIME. PATIENT WAS GIVEN 2 TABLETS OF NORCO 5/325MG PO. WILL REASSESS PAIN AT 0400.
[2021-03-05] MEDS: METOPROLOL TARTRATE 50 MG TABLET PO SCH (05:09)
[2021-03-05 06:20] LABS: BASOPHILS % (AUTO) 0.5 % (0.0-2.0); EOSINOPHILS % (AUTO) 2.1 % (0.0-6.0); HEMATOCRIT 29 % (39-51); HEMOGLOBIN 9.7 g/dL (13.5-17.5); LYMPHOCYTES # (AUTO) 0.7 K/uL (0.8-4.8); LYMPHOCYTES % (AUTO) 11.7 % (20.0-44.0); MEAN CORPUSCULAR HGB CONC 34 g/dl (31.0-36.0); MEAN CORPUSCULAR VOLUME 108 fL (80-96); MONOCYTES # (AUTO) 0.6 K/uL (0.1-1.30); MONOCYTES % (AUTO) 9.8 % (2.0-12.0); NEUTROPHILS # (AUTO) 4.6 K/uL (1.8-8.9); NEUTROPHILS % (AUTO) 75.9 % (43.0-81.0); PLATELET COUNT (AUTO) 213 K/uL (150-450); RED BLOOD CELL COUNT(AUTO) 2.64 MIL/uL (4.5-6.0); WHITE BLOOD COUNT (AUTO) 6.1 K/uL (4.3-11.0)
[2021-03-05 06:46] LABS: CALCIUM, SERUM 8.3 mg/dL (8.5-10.1); CREATININE 1.2 mg/dL (0.6-1.3); POTASSIUM 3.8 mmol/L (3.5-5.1)
--- NOTE | 2021-03-05 07:22 | NUR ---
MS RN CLOSING NOTES PATIENT LAST SEEN SLEEPING IN BED. PATIENT IS A/O X4. PATIENT'S ON 3LPM OF OXYGEN VIA NASAL CANNULA WITH NO RESPIRATORY DISTRESS NOTED. IV ACCESS ON LEFT FOREARM G#22, WHICH IS INTACT, PATENT, AND FLUSHING WELL. PATIENT'S IN NO ACUTE DISTRESS AT THIS TIME: SAFETY MEASURES IN PLACE: BED LOCKED, BED ALARM ON, SIDE RAILS UPX3, AND CALL LIGHT WITHIN REACH. ENDORSED CARE TO THE DAY SHIFT NURSE.
--- NOTE | 2021-03-05 07:40 | NUR ---
MS RN OPENING NOTES PATIENT CURRENTLY LYING IN BED, RESTING. EASY TO AROUSE. A/O X4. STABLE ON 3L OF OXYGEN VIA NASAL CANNULA. NO SOB NOTED. NO DISTRESS/DISCOMFORT NOTED. IV ACCESS TO LEFT FOREARM #22 - NO FLUIDS RUNNING. SAFETY MEASURES IN PLACE. CALL LIGHT WITHIN REACH. WILL CONTINUE TO MONITOR.
[2021-03-05 08:00] VITALS: BP 128/76
[2021-03-05] MEDS: MEROPENEM 1 G in IV NS 0.9% 100 ML IV SCH (08:14)
[2021-03-05] MEDS: ASPIRIN 81 MG TAB.CHEW PO SCH (08:14)
[2021-03-05] MEDS: PANTOPRAZOLE 40 MG TABLET.DR PO SCH (08:14)
[2021-03-05] MEDS: APIXABAN 5 MG TABLET PO SCH (08:15)
[2021-03-05] MEDS: CLOTRIMAZOLE 1% 15 GM TUBE TP SCH (08:16)
[2021-03-05] MEDS: Z GUARD REMEDY 2 OZ OINT TP SCH (08:16)
[2021-03-05] MEDS ORDERED: CALCIUM CARB 600MG /VIT D 1 EACH TABLET PO SCH (09:00)
[2021-03-05] MEDS ORDERED: CLOT15CR35 TP (11:01)
[2021-03-05] MEDS ORDERED: Calcium Carb 600MG /Vit D PO (11:01)
[2021-03-05] MEDS ORDERED: HYDR-3972 PO (11:01)
[2021-03-05] MEDS ORDERED: METO50TA16 PO (11:01)
[2021-03-05] MEDS ORDERED: SIMV-46 PO (11:01)
[2021-03-05] MEDS ORDERED: APIX5TAB PO (11:01)
[2021-03-05] MEDS ORDERED: MERO1PIG IV (11:01)
[2021-03-05] MEDS ORDERED: ASPI-1169 PO (11:01)
[2021-03-05] MEDS ORDERED: PANT40TA2 PO (11:01)
--- NOTE | 2021-03-05 14:13 | NUR ---
MS RN NOTE REPORT GIVEN TO RECEIVING FACILITY - [facility]. PENDING PICKUP
--- NOTE | 2021-03-05 15:16 | NUR ---
MS LEAD TRAINER NOTE PATIENT DISCHARGED TO [facility] VIA AMBULANCE @ 1440. A/O X4. STABLE ON ROOM AIR - USES 3L OXYGEN NASAL CANNULA WHEN NEEDED. NO DISTRESS/DISCOMFORT OR PAIN NOTED AT THIS TIME. WOUND DRESSING CHANGED - PHOTO TAKEN. ABDOMINAL/GROIN FOLDS LOOK CLEAR, NO REDNESS NOTED. NO SACRAL REDNESS NOTED. IV LEFT IN DUE TO PATIENT CONTINUING IV ANTIBIOTICS. REPORT GIVEN TO RECEIVING FACILITY. PATIENT ESCORTED TO [facility] IN [facility] BY EMT'S. MD AND CHARGE NURSE AWARE OF DISCHARGE.
== END 2021-03-05 14:30 | DRG 264 ==
LOC: ER 22:55 → TELE1 02-26 01:40 → MEDSG1 02-27 21:23 → MED 03-01 21:39
PROVIDERS: ADMIT Nurse Practitioner Acute Care; ATTEND Nurse Practitioner Acute Care
PROC: 0JBP0ZZ Excision of Left Lower Leg Subcutaneous Tissue and Fascia, Open Approach (ICD-10-PCS; principal; 2021-02-28)
DX: I48.19 Other persistent atrial fibrillation (principal); N17.0 Acute kidney failure with tubular necrosis; I13.0 Hypertensive heart and chronic kidney disease with heart failure and stage 1 through stage 4 chronic kidney disease, or unspecified chronic kidney disease; E44.0 Moderate protein-calorie malnutrition; L03.116 Cellulitis of left lower limb; I87.312 Chronic venous hypertension (idiopathic) with ulcer of left lower extremity; L97.829 Non-pressure chronic ulcer of other part of left lower leg with unspecified severity; N39.0 Urinary tract infection, site not specified; Z16.12 Extended spectrum beta lactamase (ESBL) resistance; Z68.41 Body mass index [BMI] 40.0-44.9, adult; Z20.822 Contact with and (suspected) exposure to COVID-19; E11.22 Type 2 diabetes mellitus with diabetic chronic kidney disease; I50.9 Heart failure, unspecified; D53.9 Nutritional anemia, unspecified; I25.10 Atherosclerotic heart disease of native coronary artery without angina pectoris; Z68.39 Body mass index [BMI] 39.0-39.9, adult; E11.42 Type 2 diabetes mellitus with diabetic polyneuropathy; G47.30 Sleep apnea, unspecified; Z86.16 Personal history of COVID-19; N18.31 Chronic kidney disease, stage 3a; E66.9 Obesity, unspecified; R82.71 Bacteriuria
CPT/HCPCS: 36415; 71045-TC; 75574; 76770-TC; 80048-TC; 80053-TC; 80061-TC; 80076-TC; 80202-TC; 81001; 82570-TC; 82728-TC; 83540-TC; 83735-TC; 83880; 84100-TC; 84155-TC; 84300-TC; 84443-TC; 84484-TC; 85025-TC; 85730-TC; 87081-TC; 87086-TC; 87186-TC; 93307-TC; 93970-TC; A6253; A6403; C9803; G0378; J1170; J1650; J2185; J2270; J3370; J3490; J7030; J7040; J7050; J7060; Q9967; U0003

== ENCOUNTER 2021-03-22 23:43 | Emergency (ER) | payer MEDICARE, OTHER ==
[~2021-03-22] VITALS: Ht 170.2 cm; Wt 111.1 kg
[~2021-03-22 23:43] MED LIST: ACET-868 PO; AMMO385C4 TP; APIX5TAB PO; ASCO500T21 PO; ASPI-1169 PO; BISA10SU11 RC; CLON0.5T4 PO; CLOT15CR35 TP; Calcium Carb 600MG /Vit D PO; DICL100G34 TP; DOCU100C36 PO; ENOX40DI SQ; ESCI10TA PO; FERR325T23 PO; HYDR-3972 PO; HYDR-4209 PO; HYDR-4303 PO; INSU100V11 SQ; ISOS60TA72 PO; MAGN400O6 PO; MELA3TAB41 PO; MERO1PIG IV; METO50TA16 PO; MULT-447 PO; NA P133E RC; PANT40TA2 PO; SIMV-46 PO; TIZA4TAB5 PO; ZOLP5TAB8 PO
[2021-03-23 01:01] LABS: BILIRUBIN,URINE NEGATIVE (NEGATIVE); COLOR,URINE YELLOW (YELLOW); LEUKOCYTE ESTERASE ,URINE NEGATIVE (NEGATIVE); NITRITE, URINE NEGATIVE (NEGATIVE); PROTEIN,URINE NEGATIVE (NEGATIVE); UGLUCOSE NEGATIVE (NEGATIVE); UROBILINOGEN,URINE 0.2 EU/dL (0.2)
[2021-03-23 01:22] LABS: CALCIUM, SERUM 9.1 mg/dL (8.5-10.1); CARBON DIOXIDE 26 mmol/L (21-32); CHLORIDE 103 mmol/L (98-107); CREATININE 1.5 mg/dL (0.6-1.3); GLUCOSE 109 mg/dL (74-106); POTASSIUM 4.7 mmol/L (3.5-5.1); SODIUM SERUM 136 mmol/L (136-145); UREA NITROGEN, BLOOD 28 mg/dL (7-18)
[2021-03-23 01:23] LABS: BASOPHILS % (AUTO) 0.2 % (0.0-2.0); EOSINOPHILS % (AUTO) 1.2 % (0.0-6.0); HEMATOCRIT 39 % (39-51); HEMOGLOBIN 12.4 g/dL (13.5-17.5); LYMPHOCYTES % (AUTO) 9.3 % (20.0-44.0); MEAN CORPUSCULAR HGB CONC 32 g/dl (31.0-36.0); MEAN CORPUSCULAR VOLUME 111 fL (80-96); MONOCYTES # (AUTO) 0.9 K/uL (0.1-1.30); MONOCYTES % (AUTO) 8.4 % (2.0-12.0); NEUTROPHILS % (AUTO) 80.9 % (43.0-81.0); PLATELET COUNT (AUTO) 170 K/uL (150-450); RED BLOOD CELL COUNT(AUTO) 3.47 MIL/uL (4.5-6.0); WHITE BLOOD COUNT (AUTO) 11.1 K/uL (4.3-11.0)
[2021-03-23 01:29] LABS: ALANINE AMINOTRANSFERASE 16 U/L (12-78); ALBUMIN 3.2 g/dL (3.4-5.0); ALCOHOL, BLOOD < 3 mg/dL (0-0); ALKALINE PHOSPHATASE 82 U/L (46-116); ASPARTATE AMINOTRANSFERASE 23 U/L (15-37); BILIRUBIN,DIRECT 0.2 mg/dL (0.0-0.2); BILIRUBIN,TOTAL 0.5 mg/dL (0.2-1.0); TOTAL PROTEIN, SERUM 7.8 g/dL (6.4-8.2)
[2021-03-23 01:35] LABS: ACETAMINOPHEN 0 ug/ml (10-30)
[2021-03-23] MEDS ORDERED: MORPHINE SULFATE INJ 2 MG/ML DISP.SYRIN ONE (03:29)
[2021-03-23] MEDS ORDERED: MORPHINE SULFATE INJ 2 MG/ML DISP.SYRIN IM ONE (03:30)
[2021-03-23] MEDS ORDERED: OXYC-128 PO (03:33)
--- NOTE | 2021-03-23 03:37 | NUR ---
MORPHINE NON ADMIN PER MD ORDER.
[2021-03-23] MEDS ORDERED: oxyCODONE/APAP (5/325 MG) 1 UDTAB TABLET ONE ×3 (03:39→07:15)
[2021-03-23] MEDS ORDERED: oxyCODONE/APAP (5/325 MG) 1 UDTAB TABLET PO ONE ×2 (04:00→07:00)
--- NOTE | 2021-03-23 05:27 | NUR ---
[facility] ETA [phone]
--- NOTE | 2021-03-23 06:14 | NUR ---
[facility] UPDATED ETA: 30 MINUTES
[2021-03-23 06:26] LABS: EOSINOPHILS % (MANUAL) 1 % (0-4); LYMPHOCYTES % (MANUAL) 9 % (16-48); MONOCYTES % (MANUAL) 8 % (0-11.0); NEUTROPHILS % (MANUAL) 82 (42-76)
--- NOTE | 2021-03-23 06:46 | NUR ---
DR. ORTEGA GAVE VERBAL ORDER TO GIVE ANOTHER DOSE OF PERCOCET BEFORE PT GOES BACK TO THE FACILITY.
--- NOTE | 2021-03-23 07:45 | NUR ---
REPORT GIVEN TO EMS FOR PT TRANSFER BACK TO FACILITY.
[2021-03-23 08:45] VITALS: BP 131/84
== END 2021-03-23 08:46 | disposition home or self-care (01) ==
LOC: ER 23:47
DX: G89.29 Other chronic pain (principal); R45.851 Suicidal ideations; I50.9 Heart failure, unspecified; E11.22 Type 2 diabetes mellitus with diabetic chronic kidney disease; N18.9 Chronic kidney disease, unspecified; E11.40 Type 2 diabetes mellitus with diabetic neuropathy, unspecified; Z79.899 Other long term (current) drug therapy; Z79.4 Long term (current) use of insulin
CPT/HCPCS: 36415; 80048-TC; 80076-TC; 85025-TC; G0480; J2270